=== PATIENT | male | born 1980 | race Caucasian/White ===

== ENCOUNTER 2021-03-01 13:07 | Emergency (ER) | payer OTHER | END 2021-03-01 14:15 | disposition home or self-care (01) | LOC: FER 13:07 | DX: S61.212A Laceration without foreign body of right middle finger without damage to nail, initial encounter (principal); J43.9 Emphysema, unspecified; W26.8XXA Contact with other sharp object(s), not elsewhere classified, initial encounter; Y92.009 Unspecified place in unspecified non-institutional (private) residence as the place of occurrence of the external cause | CPT/HCPCS: 90471; 90715 ==

== ENCOUNTER 2021-03-10 11:41 | Emergency (ER) | payer OTHER | END 2021-03-10 12:25 | disposition home or self-care (01) | LOC: FER 11:41 | DX: S61.212D Laceration without foreign body of right middle finger without damage to nail, subsequent encounter (principal); J43.9 Emphysema, unspecified; F17.210 Nicotine dependence, cigarettes, uncomplicated | CPT/HCPCS: 99281 ==